=== PATIENT | female | born 1980 | race Caucasian/White ===

== ENCOUNTER 2016-10-29 03:45 | Inpatient (IN) ==
[~2016-10-29 03:45] MED LIST: Famotidine 20 MG/2 ML VIAL IVP PRN; Metoclopramide 10 MG/2 ML VIAL IVP PRN; Naloxone 0.4 MG/ML INJ IVP PRN; Ringers Solution, Lactated 1,000 ML IVC SCH
[2016-10-29] MEDS ORDERED: *HR* Nalbuphine 20 MG/ML AMPUL IVP PRN (03:48)
[2016-10-29 03:50] LABS: Hematocrit 34.6 % (35.3-44.9); Hemoglobin 11.7 g/dL (11.5-15.4); Mean Corpuscular HGB Conc 33.8 g/dL (31.6-35.5); Mean Corpuscular Hemoglobin 31.4 pg (28.0-33.3); Mean Corpuscular Volume 92.8 fL (83.0-100.0); Mean Platelet Volume 10.6 fL (9.4-12.4); Platelet Count 218 K/mcL (140-400); Red Blood Count 3.73 M/mcL (3.82-4.97)
--- NOTE | 2016-10-29 04:09 | OB/GYN History & Physical ---
Date of Encounter: 10/29/16 Time of Encounter: 04:07 Assessment and Plan (1) Spontaneous onset of labor Current visit: Yes Status: Acute with advanced dilation, give epidural, after epidural, will AROM, anticipate History of Present Illness HPI: Ms. Newman is a 36 year old female @ 39+ 6wks who presented to L&D in labor. She was checked and 5cm. No LOF, bleeding, nevaeh every 5 mins. GBS neg Past Med Surg Social Fam HX - Past Medical History Medical history: no medical history Psychiatric history: no psych history - Past Surgical History Surgical History: no surgical history, non-contributory - Social History Smoking Status: Never smoker Alcohol use: none Drug use: none - Family History Mother History Unknown: Yes Obstetrical History - Pregnancies : 3 Medications and Allergies Daily Combo Pack 1 tab PO DAILY 10/29/16 [History] Maxalt 1 tab PO PRN PRN 10/29/16 [History] Allergies latex Adverse Reaction (Verified 10/29/16 03:42) Redness of Skin general anesthesia Adverse Reaction (Uncoded 10/29/16 04:13) Anaphylaxis Review of System OB All systems PM: reviewed and no additional remarkable complaints except as stated Exam - Vital Signs Vital signs: Initial Vital Signs Temp Pulse Resp BP 98.0 F 81 19 111/62 10/29/16 03:21 10/29/16 03:21 10/29/16 03:21 10/29/16 03:21 - Constitutional Constitutional: well developed - HEENT HEENT: Normocephaly - Neck Neck exam: normal inspection - Lungs Respiratory exam: CTAB - Cardiovascular Cardiovascular exam: RRR - Abdomen Abdomen: Present: gravid - Cervix Dilation: 5 Results Result Diagrams: 10/29/16 03:41 Abnormal lab results RBC 3.73 M/mcL (3.82-4.97) L 10/29/16 03:41 Hct 34.6 % (35.3-44.9) L 10/29/16 03:41 All other labs normal. - VTE Reasons for not Prescribing Prophylaxis: Treatment not Indicated - Low risk for VTE
[2016-10-29] MEDS ORDERED: *HR* Ropivacaine/PF 0.2% 10 ML AMPUL EP ONE (04:23)
[2016-10-29] MEDS ORDERED: EPHEDrine 50 MG/ML VIAL IVP PRN (04:23)
[2016-10-29] MEDS ORDERED: *HR* FentaNYL (PF) 100 MCG/2 ML VIAL EP ONE (04:23)
[2016-10-29] MEDS ORDERED: Ringers Solution, Lactated 500 ML IVC ONE (04:23)
--- NOTE | 2016-10-29 04:26 | Anesthesia Evaluation PreOp ---
Date of Encounter: 10/29/16 Time of Encounter: 04:15 - Past History Planned Operation: Labor Epidural Cardiac History: Denies any Significant Hx Pulmonary History: Denies Any Significant HX [employer]OR History: Denies Any Significant HX Other Medical History: Denies Any Significant HX Anesthesia History: Past Anesthesia, Problems (Pseudocholinesterase deficiency) , Psuedocholineserase Def. : Yes Alcohol Use: none Drug use: none Medications and Allergies Daily Combo Pack 1 tab PO DAILY 10/29/16 [History] Maxalt 1 tab PO PRN PRN 10/29/16 [History] Allergies latex Adverse Reaction (Verified 10/29/16 03:42) Redness of Skin general anesthesia Adverse Reaction (Uncoded 10/29/16 04:13) Anaphylaxis - Meds/Allergy Pre-op Review Medications Reviewed: Yes Allergies Reviewed: Yes Beta Blockers on Current Med List: No Anesthesia Results - Labs 10/29/16 03:41 Anesthesia Exam Last Vital Signs Temp 98.0 F 10/29/16 03:21 Pulse 81 10/29/16 03:21 Resp 19 10/29/16 03:21 BP 111/62 10/29/16 03:21 Height: 1.75m Weight: 92kg NPO (# of Hours): >4hr Pain Scale: 9 Pain Scale Used: Numeric (1 - 10) - HEENT Pupil (Motor): Pupils equal Mallampati: I Teeth: Normal Oral Opening: Greater than 3 - 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
[2016-10-29] MEDS ORDERED: Epidural Premix (fent/bupiv) 110 ML EP ONE (04:27)
[2016-10-29] MEDS ORDERED: *HR* Ropivacaine/PF 0.2% 10 ML AMPUL ONE (04:27)
[2016-10-29] MEDS ORDERED: *HR* FentaNYL (PF) 100 MCG/2 ML VIAL ONE (04:27)
[2016-10-29] MEDS ORDERED: Epidural Premix (fent/bupiv) 110 ML EP SCH (04:30)
--- NOTE | 2016-10-29 05:00 | Anesthesia Procedures ---
Date of Encounter: 10/29/16 Time of Encounter: 04:27 Procedures: Anesthesia - Epidural/Spinal Patient ID/Chart reviewed: Yes Patient examined: Yes OB Eval: : 3 OB Eval: Hx Para: 1 OB Eval: Contractions: Non-stressed pattern Consent Obtained: Yes Supplemental Oxygen: None/Room Air Site Prep: Aseptic Technique, Sterile prep and drape, 0.5% Chlorhexidine/Alcohol Patient position: upright Local Anesthetic: Lidocaine 1% Amount of Local Anesthetic used: 2.5 Touhy Needle Gauge: 18 Touhy Needle Depth (cm): 7 Catheter Depth at Skin (cm): 12 Test Dose (1.5% Lido + Epi): Volume given (mls): 5 Test Dose Result: Negative Loading Dose: Fentanyl (mcg): 100 Loading Dose: Other: Ropivacaine 0.2% 10mL Loading Dose Administered: Thru Catheter Infusion Med: 0.125% Bupivacaine w/ 2 mcg/ml Fentanyl Infusion Rate (mls/hr): 16 (Bolus 4mL q15min; max 3/hr) Catheter Secured in Place: Tegaderm Interspace Used: L3-L4 Loss of Resistance (GEOFFREY): Yes Blood: No CSF: No Paresthesia: No Procedure: x1 attempt. Patient tolerated well. Vitals + FHT's: Decreased BP after bolus to 65/59. Ephedrine 10mg given. BP increased quickly to 110s/70s. FHR stable throughout.
--- NOTE | 2016-10-29 06:09 | OB Labor Progress Note ---
Date of Encounter: 10/29/16 Time of Encounter: 06:07 Labor Progress Note - Subjective Subjective: patient had a spont decel with full recovery - Vital Signs Vital Signs: VSS - Cervix Cervix: fully/+1 - Plan Plan: patient does not want to AROM, she says she wants to do it naturally, She wants to hold off on pushing till mom comes in, comfortable with epidural, anticipate
[2016-10-29] MEDS ORDERED: Oxytocin 20 units/ LR 1000 mL 20 UNIT/1,000 ML BAG IVC ONE ×3 (07:22→12:46)
[2016-10-29] MEDS ORDERED: MAXALT PO PRN (10:12)
--- NOTE | 2016-10-29 10:21 | OB/GYN Procedure Note ---
Delivery - Delivery Date: 10/29/16 Provider: Rosalva Doe Intrapartum events: none Delivery induction: none Delivery augmentation: rupture of membranes Delivery monitor: external FHT, external uterine Anesthesia: epidural Estimated Blood Loss: 300 - (s) Infant A Delivery Date: 10/29/16 Infant Delivery Time: 09:57 Presentation: vertex Position: MATT Route of delivery: Gender: Female Viability: Viable Pounds: 8 Ounces: 7 at 1 minute: 8 at 5 mins: 9 Shoulder Dystocia: not encountered Specimens collected: cord blood Placenta: spontaneous, uterine exploration Cord: nuchal cord, 3 umbilical vessels, nuchal reduced - Repair Episiotomy: none Laceration Description: Periurethral, Superficial - Complications Delivery complications: none Delivery comments: The patient was complete and pushing spontaneous rupture of membranes at the perineum. There was a spontaneous vaginal delivery in the MATT position with nuchal cord 1 reduced of a vigorous female weighing 8 lbs. 7 oz. with Apgars of 8 at 1 minute and 9 at 5 minutes. The infant was placed on the maternal abdomen. Cord was clamped and cut after delay. Cord blood was obtained. Placenta was delivered spontaneous and intact. The uterus was explored and there were no retained products of conception. There are no cervical, vaginal or perineal lacerations. There is a superficial periurethral laceration which was hemostatic and not repaired. There was vigorous bleeding initially after delivery which resolved. Estimated blood loss 300 mL complications none. Both mother and infant recovering in stable condition in the LDR. - Disposition Mom disposition: stable in LDR [place] disposition: stable in LDR
[2016-10-29] MEDS ORDERED: Acetaminophen 325 MG TABLET PO PRN (12:46)
[2016-10-29] MEDS ORDERED: Rho Immune Globulin 1,500 UNIT SYRINGE IM PRN (12:46)
[2016-10-29] MEDS ORDERED: Oxytocin 20 units/ LR 1000 mL 20 UNIT/1,000 ML BAG IV SCH (12:46)
[2016-10-29] MEDS: Ibuprofen 600 MG TABLET PO PRN (15:56)
[2016-10-30 06:56] LABS: Basophils % 0.3 %; Eosinophils # 0.1 K/mcL (0.0-0.6); Eosinophils % 1.2 %; Hematocrit 28.8 % (35.3-44.9); Hemoglobin 9.5 g/dL (11.5-15.4); Lymphocytes # 1.7 K/mcL (0.6-4.6); Lymphocytes % 17.1 %; Mean Corpuscular Hemoglobin 31.5 pg (28.0-33.3); Mean Corpuscular Volume 95.4 fL (83.0-100.0); Mean Platelet Volume 11.3 fL (9.4-12.4); Monocytes # 0.8 K/mcL (0.0-1.3); Monocytes % 8.1 %; Neutrophils # 7.3 K/mcL (1.6-8.9); Platelet Count 165 K/mcL (140-400); Red Blood Count 3.02 M/mcL (3.82-4.97); Red Cell Distribution Width 13.3 % (11.5-14.5); Segmented Neutrophils % 72.3 %
[2016-10-30] MEDS ORDERED: Prenatal Vit/FA 1 EACH TABLET PO SCH (09:00)
[2016-10-30] MEDS: Ibuprofen 600 MG TABLET PO PRN (09:04)
[2016-10-30] MEDS ORDERED: Lanolin 7 G OINT...G. TP PRN (10:01)
--- NOTE | 2016-10-30 10:27 | Discharge Summary ---
Date of Encounter: 10/30/16 Time of Encounter: 10:25 - Discharge Diagnosis (1) Anemia, Priority: Secondary Status: Acute (2) Vaginal delivery Priority: Primary Status: Acute Comments: Pt states feeling well, minimal pain and meeting all milestones. - Discharge Medications Prescriptions: Ibuprofen [Motrin] 600 mg PO Q6HR PRN #60 tablet PRN Reason: Cramping Docusate [Colace] 100 mg PO BID #60 capsule Ferrous Sulfate 325 mg PO DAILY #60 tablet Home Medications: Daily Combo Pack 1 tab PO DAILY 10/29/16 [History] Maxalt 1 tab PO PRN PRN 10/29/16 [History] Acetaminophen [Tylenol] 650 mg PO Q6HR PRN #0 tablet 10/30/16 [Rx] Breast Pump [BREAST PUMP] 1 each .ROUTE AD #1 each 10/30/16 [Rx] Docusate [Colace] 100 mg PO BID #60 capsule 10/30/16 [Rx] Ferrous Sulfate 325 mg PO DAILY #60 tablet 10/30/16 [Rx] Ibuprofen [Motrin] 600 mg PO Q6HR PRN #60 tablet 10/30/16 [Rx] Lanolin [Lansinoh] 1 appl TP TID PRN #0 oint...g. 10/30/16 [Rx] Vit/FA 1 each PO DAILY tablet 10/30/16 [Rx] Allergies/Adverse Reactions: Allergies latex Adverse Reaction (Verified 10/29/16 03:42) Redness of Skin general anesthesia Adverse Reaction (Uncoded 10/29/16 04:13) Anaphylaxis Data Procedures and tests throughout hospitalization: Laboratory Tests 10/29/16 10/30/16 03:41 06:09 WBC 9.6 10.1 RBC 3.73 L 3.02 L Hgb 11.7 9.5 L D Hct 34.6 L 28.8 L MCV 92.8 95.4 MCH 31.4 31.5 MCHC 33.8 33.0 RDW 13.0 13.3 Plt Count 218 165 MPV 10.6 11.3 Immature Gran % 1.0 Seg Neutrophils % 72.3 Lymphocytes % 17.1 Monocytes % 8.1 Eosinophils % 1.2 Basophils % 0.3 Neutrophils # 7.3 Lymphocytes # 1.7 Monocytes # 0.8 Eosinophils # 0.1 Basophils # 0.0 Labs on day of discharge: Labs from last 24 hours 10/30/16 06:09 WBC 10.1 RBC 3.02 L Hgb 9.5 L D Hct 28.8 L MCV 95.4 MCH 31.5 MCHC 33.0 RDW 13.3 Plt Count 165 MPV 11.3 Immature Gran % 1.0 Seg Neutrophils % 72.3 Lymphocytes % 17.1 Monocytes % 8.1 Eosinophils % 1.2 Basophils % 0.3 Neutrophils # 7.3 Lymphocytes # 1.7 Monocytes # 0.8 Eosinophils # 0.1 Basophils # 0.0 Date of admission: 10/29/16 03:45 Primary care physician: PCP NO Consults: 10/29/16 12:46 Consult to Release Of Information Specialist [CONS] Routine Comment: Vaginal delivery, consult needed Discharging clinician: Christina Box Anticipated date of discharge: 10/30/16 - Patient Status Disposition: Home, Self-Care Functional capacity at discharge: independent ambulation Overall status at discharge: patient is back to baseline - Discharge Instructions Instructions: Anemia (GEN) Follow Up With: ALE,PCP [Primary Care Provider] - Zonia Rocha DO [Partnered Physician] - - Diet and Activity Diet: regular diet Hospital Course Reason for admission: active labor Delivery: Episiotomy: none Laceration: other (superficial periuretheral) Other procedures: none complications: none Discharge diagnosis: IUP at term delivered baby: female Hospital course: Delivery - Delivery Date: 10/29/16 Provider: Rosalva Doe Intrapartum events: none Delivery induction: none Delivery augmentation: rupture of membranes Delivery monitor: external FHT, external uterine Anesthesia: epidural Estimated Blood Loss: 300 - Infant (s) Infant A Delivery Date: 10/29/16 Infant Delivery Time: 09:57 Presentation: vertex Position: MATT Route of delivery: Gender: Female Viability: Viable Pounds: 8 Ounces: 7 at 1 minute: 8 at 5 mins: 9 Shoulder Dystocia: not encountered Specimens collected: cord blood Placenta: spontaneous, uterine exploration Cord: nuchal cord, 3 umbilical vessels, nuchal reduced - Repair Episiotomy: none Laceration Description: Periurethral, Superficial Stable in . Appropriate for discharge Time Attestation: Total time spent providing and/or coordinating discharge services: Time Spent: Less than 30 minutes Exam - Constitutional Vitals: Temp Pulse Resp BP Pulse Ox 97.9 F 75 16 104/75 97 10/29/16 20:33 10/29/16 20:33 10/30/16 09:20 10/29/16 20:33 10/29/16 20:33 General appearance IM: A&O X 3 - Respiratory Respiratory exam: Present: CTAB - Cardiovascular Cardiovascular exam IM: Present: RRR, +S1 - GI/Abdominal GI/Abdominal exam IM: soft - Uterine Tone: Firm - Extremities Exam Extremities exam IM: Present: normal inspection - Neurological Exam Neurological exam: normal gait, oriented X3 - Psychiatric Additional comments: reports good mood
[2016-10-30 10:43] VITALS: BP 105/68
== END 2016-10-30 15:31 | disposition home or self-care (01) | DRG 775 ==
LOC: 1NENULAB → 1NENUOBS 13:01
PROVIDERS: ADMIT Student in an Organized Health Care Education/Training Program; ATTEND Student in an Organized Health Care Education/Training Program

== ENCOUNTER 2021-06-12 15:48 | Inpatient (IN) ==
[~2021-06-12 15:48] MED LIST changes: +*HR* Nalbuphine 10 MG/ML AMPUL IV PRN; +Azithromycin 500 MG in 0.9 % Sodium Chloride 250 ML IVPB PRN; +Lidocaine 1% 20 ML MDV INFILT PRN; -Ringers Solution, Lactated 1,000 ML IVC SCH
[2021-06-12 16:45] LABS: Basophils # 0.1 K/mcL (0.0-0.2); Basophils % 0.8 %; Eosinophils # 0.2 K/mcL (0.0-0.6); Eosinophils % 1.7 %; Hematocrit 31.5 % (35.3-44.9); Hemoglobin 10.5 g/dL (11.5-15.4); Immature Granulocytes % 3.8 % (0-4); Lymphocytes # 1.8 K/mcL (0.6-4.6); Lymphocytes % 16.4 %; Mean Corpuscular HGB Conc 33.3 g/dL (31.6-35.5); Mean Corpuscular Hemoglobin 32.6 pg (28.0-33.3); Mean Corpuscular Volume 97.8 fL (83.0-100.0); Mean Platelet Volume 11.3 fL (9.4-12.4); Monocytes # 1.1 K/mcL (0.0-1.3); Monocytes % 9.5 %; Neutrophils # 7.5 K/mcL (1.6-8.9); Platelet Count 226 K/mcL (140-400); Red Blood Count 3.22 M/mcL (3.82-4.97); Red Cell Distribution Width 13.2 % (11.5-14.5); Segmented Neutrophils % 67.8 %; White Blood Count 11.1 K/mcL (4.3-11.1)
[2021-06-12 17:18] LABS: Influenza A PCR Negative (Negative); Influenza B PCR Negative (Negative); Resp. Syncytial Virus PCR Negative (Negative); SARS-CoV-2 by PCR (In House) Negative (Negative)
[2021-06-12] MEDS ORDERED: Oxytocin 20 units/ LR 1000 mL 20 UNIT/1,000 ML BAG IVC SCH (17:30)
[2021-06-12] MEDS: Ringers Solution, Lactated 1,000 ML IVC SCH (17:41)
[2021-06-12] MEDS ORDERED: EPHEDrine 50 MG/ML VIAL IVP PRN (20:33)
[2021-06-12] MEDS ORDERED: Epidural Premix (fent/bupiv) 110 ML EP SCH (20:45)
[2021-06-13] MEDS: Ringers Solution, Lactated 1,000 ML IVC SCH ×2 (03:45→05:17)
[2021-06-13] MEDS ORDERED: Ondansetron 4 MG/2 ML VIAL IVP ONE (03:48)
[2021-06-13] MEDS ORDERED: Ondansetron 4 MG/2 ML VIAL ONE (03:52)
[2021-06-13] MEDS ORDERED: Ropivacaine/PF 0.2% 20 ML VIAL ONE (11:10)
[2021-06-13] MEDS ORDERED: Lanolin 7 G OINT...G. TP PRN (16:25)
[2021-06-13] MEDS ORDERED: Ondansetron ODT 4 MG TAB.RAPDIS SL PRN (16:25)
[2021-06-13] MEDS ORDERED: Benzocaine/Menthol 56 GM AEROSOL SPRAY TP PRN (16:25)
[2021-06-13] MEDS ORDERED: Oxytocin 20 units/ LR 1000 mL 20 UNIT/1,000 ML BAG IVC SCH (16:30)
[2021-06-13 16:53] LABS: Amphetamine Screen,Urine Negative ng/mL (Cutoff=1000); Barbiturate Screen,Urine Negative ng/mL (Cutoff=200); Benzodiazepines Screen,Urine Negative ng/mL (Cutoff=300)
[2021-06-13 16:54] LABS: Cannabinoid Screen,Urine Negative ng/mL (Cutoff = 50); Cocaine Screen,Urine Negative ng/mL (Cutoff= 300); Opiate Screen,Urine Negative ng/mL (Cutoff=300); Phencyclidine Screen,Urine Negative ng/mL (Cutoff=25)
[2021-06-13] MEDS: Acetaminophen 325 MG TABLET PO SCH (18:25)
[2021-06-13] MEDS: Ibuprofen 600 MG TABLET PO SCH (20:24)
[2021-06-14 05:08] LABS: Basophils % 0.3 %; Eosinophils # 0.2 K/mcL (0.0-0.6); Eosinophils % 1.4 %; Hematocrit 26.6 % (35.3-44.9); Immature Granulocytes % 1.6 % (0-4); Lymphocytes # 1.9 K/mcL (0.6-4.6); Lymphocytes % 14.1 %; Mean Corpuscular HGB Conc 33.8 g/dL (31.6-35.5); Mean Corpuscular Hemoglobin 33.5 pg (28.0-33.3); Mean Corpuscular Volume 98.9 fL (83.0-100.0); Mean Platelet Volume 10.9 fL (9.4-12.4); Monocytes # 1.3 K/mcL (0.0-1.3); Monocytes % 9.3 %; Neutrophils # 9.9 K/mcL (1.6-8.9); Platelet Count 189 K/mcL (140-400); Red Blood Count 2.69 M/mcL (3.82-4.97); Red Cell Distribution Width 13.5 % (11.5-14.5); Segmented Neutrophils % 73.3 %; White Blood Count 13.6 K/mcL (4.3-11.1)
[2021-06-14 05:15] VITALS: TEMP 97.9
[2021-06-14] MEDS: Ibuprofen 600 MG TABLET PO SCH (07:44)
[2021-06-14] MEDS: Acetaminophen 325 MG TABLET PO SCH (07:45)
[2021-06-14 08:26] VITALS: BP 113/70; PULSE 76; O2SAT 98
[2021-06-14] MEDS ORDERED: Prenatal Vit/FA 1 EACH TABLET PO SCH (09:00)
== END 2021-06-14 15:58 | disposition home or self-care (01) | DRG 768 ==
LOC: 1NENULAB → 1NENUOBS 06-13 15:32
PROVIDERS: ADMIT Obstetrics & Gynecology; ATTEND Obstetrics & Gynecology